=== PATIENT | male | born 1955 | race Caucasian/White ===

== ENCOUNTER 2024-12-14 00:27 | Day surgery (SDC) | payer MEDICARE ==
[~2024-12-14 00:27] MED LIST: ATOR10 PO; ATOR40TA PO; CLOP75 PO; ERTAPENEM1 G6 IV; FLUC200 PO; GLIP10ER PO; HYDMOR2 PO; LEVFLO500; LISINOPRIL-HCT1 EACH PO; METF500 PO; METH10 PO; METH40; METO50ER PO; OXYACE5T PO; OXYC5; OXYCODONE; TAMS.4ER PO; TESTOSTERONE INJ; VISBIOME 112.51 EACH PO
== END 2024-12-14 16:55 | disposition home or self-care (01) ==
LOC: ATC 00:27
DX: Z45.2 Encounter for adjustment and management of vascular access device (principal); I10 Essential (primary) hypertension; E78.00 Pure hypercholesterolemia, unspecified; E11.69 Type 2 diabetes mellitus with other specified complication; M86.171 Other acute osteomyelitis, right ankle and foot; E11.621 Type 2 diabetes mellitus with foot ulcer; L97.509 Non-pressure chronic ulcer of other part of unspecified foot with unspecified severity; I48.91 Unspecified atrial fibrillation; Z79.84 Long term (current) use of oral hypoglycemic drugs
CPT/HCPCS: 99211; C1751

== ENCOUNTER 2025-01-17 18:33 | Emergency (ER) | payer MEDICARE ==
[~2025-01-17] VITALS: Ht 180.3 cm; Wt 118.8 kg
[2025-01-17 19:04] LABS: BASOPHILS ABSOLUTE AUTO 0.03 K/mm3 (0.00-0.23); BASOPHILS PERCENT AUTO 0 % (0-2); EOSINOPHILS ABSOLUTE AUTO 0.02 K/mm3 (0.00-0.68); EOSINOPHILS PERCENT AUTO 0 % (0-6); Hematocrit 33.6 % (37.0-53.0); IMMATURE GRAN ABSOLUTE AUTO 0.03 K/mm3 (0.00-0.10); IMMATURE GRAN PERCENT AUTO 0 % (0-1); LYMPHOCYTES ABSOLUTE AUTO 0.83 K/mm3 (0.84-5.20); LYMPHOCYTES PERCENT AUTO 10 % (21-46); MONOCYTES ABSOLUTE AUTO 0.31 K/mm3 (0.16-1.47); MONOCYTES PERCENT AUTO 4 % (4-13); Mean Corpuscular HGB 27.2 pg (26.0-34.0); Mean Corpuscular HGB Conc 32.7 g/dL (31.5-36.5); Mean Corpuscular Volume 83 fL (80-100); Mean Platelet Volume 9.8 fL (9.1-12.4); NEUTROPHILS ABSOLUTE AUTO 6.74 K/mm3 (1.96-9.15); NEUTROPHILS PERCENT AUTO 85 % (41-73); Platelet Count 259 K/mm3 (150-400); RDW Coefficient Variation 19.1 % (11.7-14.2); RDW Standard Deviation 57.8 fL (35.1-46.3); Red Blood Cell Count 4.04 M/mm3 (4.30-5.90); White Blood Cell Count 7.96 K/mm3 (4.00-11.30)
[2025-01-17 19:33] LABS: Albumin, Blood 3.3 g/dL (3.4-5.0); Albumin/Globulin Ratio 0.7 (0.8-1.8); Bilirubin, Total 0.6 mg/dL (0.1-1.0); Bun/Creatinine Ratio 27.8 (12.0-20.0); Calcium, Blood 9.4 mg/dL (8.5-10.1); Creatinine, Blood 1.44 mg/dL (0.60-1.20); Globulin, Blood 4.7 g/dL (2.2-4.0)
[2025-01-17 19:47] VITALS: BP 141/91
[2025-01-17 20:37] LABS: Source, Urine Clean Catch
[2025-01-17 20:48] LABS: Appearance, Urine Hazy (Clear); Bilirubin, Urine Neg (Neg); Blood, Urine 5+ (Neg); Color, Urine Brown (P-Yellow); Glucose Qualitative, Urine 4+ (Neg); Ketones, Urine Neg (Neg); Leukocyte Esterase, Urine 2+ (Neg); Nitrite, Urine Neg (Neg); Protein, Urine 3+ (Neg); Urobilinogen, Urine NORM (Normal)
[2025-01-17 20:59] LABS: Bacteria Many /hpf; Squamous Epithelial Cells Few /hpf (Few); Yeast/Fungi Urine Many /hpf
[2025-01-17 21:00] LABS: Hyaline Casts 0-2 /lpf (0-2); Red Blood Cells, Urine 50-100 /hpf (0-2)
[2025-01-17] MEDS ORDERED: CEPH500 PO (21:43)
[2025-01-17] MEDS ORDERED: Cephalexin Monohydrate 500 MG Cap PO ONE (21:45)
== END 2025-01-17 21:58 | disposition home or self-care (01) ==
LOC: ER 18:33
PROVIDERS: Student in an Organized Health Care Education/Training Program
DX: N30.01 Acute cystitis with hematuria (principal); I10 Essential (primary) hypertension; E11.9 Type 2 diabetes mellitus without complications; J45.909 Unspecified asthma, uncomplicated; E66.9 Obesity, unspecified; Z68.36 Body mass index [BMI] 36.0-36.9, adult; Z98.890 Other specified postprocedural states; Z88.5 Allergy status to narcotic agent; Z79.84 Long term (current) use of oral hypoglycemic drugs; Z79.01 Long term (current) use of anticoagulants; Z79.899 Other long term (current) drug therapy
CPT/HCPCS: 80053; 81001; 85025; 87086; 99283; A9270

== ENCOUNTER → 2025-03-08 | Outpatient (CLI) | payer MEDICARE ==
[~2025-03-08] MED LIST changes: +CEPH500 PO
[2025-03-08 13:13] LABS: Creatinine, Urine Random 58.6 mg/dL (27.00-270.00)
[2025-03-08 13:46] LABS: Microalb/Creat Ratio UR, Rand 856.655 mg/g (0.000-30.000)
== END | disposition home or self-care (01) ==
LOC: LAB SHORT 06:00 → LAB 06:00 → LAB FUT 02-26 17:05
PROVIDERS: Student in an Organized Health Care Education/Training Program
DX: E11.8 Type 2 diabetes mellitus with unspecified complications (principal)
CPT/HCPCS: 82043; 82570

== ENCOUNTER 2025-06-07 13:11 | Inpatient (IN) | payer MEDICARE ==
[~2025-06-07] VITALS: Ht 180.3 cm; Wt 107.2 kg
[2025-06-07 14:12] LABS: BASOPHILS ABSOLUTE AUTO 0.04 K/mm3 (0.00-0.23); BASOPHILS PERCENT AUTO 1 % (0-2); EOSINOPHILS ABSOLUTE AUTO 0.02 K/mm3 (0.00-0.68); EOSINOPHILS PERCENT AUTO 0 % (0-6); Hematocrit 38.0 % (37.0-53.0); Hemoglobin 11.9 g/dL (13.5-17.5); IMMATURE GRAN ABSOLUTE AUTO 0.02 K/mm3 (0.00-0.10); IMMATURE GRAN PERCENT AUTO 0 % (0-1); LYMPHOCYTES ABSOLUTE AUTO 1.24 K/mm3 (0.84-5.20); LYMPHOCYTES PERCENT AUTO 17 % (21-46); MONOCYTES ABSOLUTE AUTO 0.39 K/mm3 (0.16-1.47); MONOCYTES PERCENT AUTO 5 % (4-13); Mean Corpuscular HGB Conc 31.3 g/dL (31.5-36.5); Mean Corpuscular Volume 86 fL (80-100); NEUTROPHILS ABSOLUTE AUTO 5.50 K/mm3 (1.96-9.15); NEUTROPHILS PERCENT AUTO 76 % (41-73); NRBC ABSOLUTE 0.00 K/mm3 (0.00-0.02); NRBC Auto 0.0 /100 WBC (0.0-0.2); Platelet Count 209 K/mm3 (150-400); RDW Coefficient Variation 14.6 % (11.7-14.2); RDW Standard Deviation 45.5 fL (35.1-46.3)
[2025-06-07 14:38] LABS: Alanine Aminotransfer (ALT/SGP 12.0 U/L (12-78); Albumin, Blood 2.7 g/dL (3.4-5.0); Albumin/Globulin Ratio 0.6 (0.8-1.8); Anion Gap 5.0 mmol/L (3-11); Aspartate Aminotrans (AST/SGOT 11.0 U/L (12-37); Bilirubin, Total 0.3 mg/dL (0.1-1.0); Blood Urea Nitrogen 36.0 mg/dL (8-24); CO2, Blood 28.0 mmol/L (21-32); Calcium, Blood 8.8 mg/dL (8.5-10.1); Chloride, Blood 102.0 mmol/L (98-108); Creatinine, Blood 1.17 mg/dL (0.60-1.20); Globulin, Blood 4.7 g/dL (2.2-4.0); Glucose, Blood 243.0 mg/dL (70-99); Potassium, Blood 4.4 mmol/L (3.5-5.5); Sodium, Blood 131.0 mmol/L (136-145); Total Protein, Blood 7.4 g/dL (6.4-8.2)
[2025-06-07 15:27] LABS: Influenza A, PCR NEGATIVE (NEGATIVE); Influenza B, PCR NEGATIVE (NEGATIVE); Resp Syncytial Virus, PCR NEGATIVE (NEGATIVE); SARS-Cov-2 (COVID-19) PCR, MMC NEGATIVE (NEGATIVE)
[2025-06-07] MEDS ORDERED: METH40 PO (17:35)
[2025-06-07] MEDS ORDERED: Ondansetron HCl 2 MG / ML 2ML Vial IV PRN (19:10)
[2025-06-07 20:19] LABS: U Amphetamine Screen Not Detected; U Barbituate Screen Not Detected; U Benzodiazapine Screen Not Detected; U Buprenorphine Screen Not Detected; U Cannabinoids Screen Not Detected; U Cocaine Screen Not Detected; U Methadone Screen DETECTED; U Methamphetamine Screen Not Detected; U Opiates Screen Not Detected; U Oxycodone Screen Not Detected; U Phencyclidine Screen Not Detected
[2025-06-07 22:57] VITALS: BP 147/76
[2025-06-08 03:54] VITALS: BP 139/80
[2025-06-08 04:44] LABS: Anion Gap 9.0 mmol/L (3-11); Blood Urea Nitrogen 33.0 mg/dL (8-24); CO2, Blood 30.0 mmol/L (21-32); Calcium, Blood 8.1 mg/dL (8.5-10.1); Chloride, Blood 100.0 mmol/L (98-108); Creatinine, Blood 1.21 mg/dL (0.60-1.20); Glucose, Blood 177.0 mg/dL (70-99); Magnesium, Blood 1.5 mg/dL (1.6-2.4); Potassium, Blood 3.9 mmol/L (3.5-5.5); Sodium, Blood 135.0 mmol/L (136-145); Thyroid Stimulating Hormone 4.07 uIU/mL (0.360-4.800)
--- NOTE | 2025-06-08 05:08 | NUR ---
SHIFT SUMMARY PT ALERT AND ORIENTED X 4. PT IN AFIB RATE CONTROLLED WITH HR IN 70S-80S. PT DENIES CP/PRESSURE. BP STABLE. PT ON RA O2 SATS ABOVE 90%. DENIES SOB EXCEPT WHEN LAYING FLAT. ADEQUATE URINE OUTPUT. PT UP INDEPENDENTLY TO EDGE OF BED. VSS. DENIES PAIN. PT ABLE TO MAKE NEEDS KNOWN. CALL TORRES WITHIN REACH.
[2025-06-08] MEDS ORDERED: Mag Sulfate 1 GM/D5% 100ML 100 ML IV STA (05:16)
--- NOTE | 2025-06-08 07:23 | NUR ---
ASSUMPTION NOTE: THIS RN TO ASSUME CARE OF PATIENT. PATIENT IS AWAKE IN BED WATCHING TV. VITAL SIGNS TAKEN & PATIENT STABLE, DENIED CHEST PAIN/PRESSURE OR FEELING SHORT OF BREATH. PATIENT STATED PAIN IS 5/10 AND THAT IS A TOLERABLE PLACE FOR HIM. HAS CALL LIGHT WITHIN REACH AND BED IN LOWEST POSITION, STATING NOTHING ELSE IS NEEDED AT THIS TIME.
[2025-06-08 07:24] VITALS: BP 130/88
[2025-06-08] MEDS ORDERED: Insulin Human Lispro 100 Units/ML 3ML Syringe SC SCH (07:30)
--- NOTE | 2025-06-08 08:40 | NUR ---
MD CONTACTE: THIS RN CALLED MD REGARDING PATIENT DENYING TO TAKE HIS MORNING METHATDONE AND WANTING TO TAKE HALF OF IT NOW AND THE OTHER HALF WITHIN 4 HOURS. MD WAS ALSO MADE AWARE THAT HE REFUSED HIS ONE UNIT OF INSULIN HE STATED "HE DOES NOT TAKE INSULIN AT HOME AND WON'T BE TAKING ANYTHING NEW SO HE DOESN'T WANT IT". MD GAVE VERBAL ORDER TO CHANGE METHADONE TO HALF NOW AND OTHER HALF IN 4HOURS.
--- NOTE | 2025-06-08 09:34 | NUR ---
MD ROUNDED: MD ROUNDED AND SPOKE WITH PATIENT REGARDING PLAN FOR TODAY WITH GETTING THE ECHO DONE TODAY. THIS RN AND PATIENT WENT OVER CONGESTIVE HEART FAILURE AND WHAT THAT IS AND SIGNS AND SYMTPOMS TO LOOK OUT FOR.
[2025-06-08 11:01] VITALS: BP 119/82
--- NOTE | 2025-06-08 16:31 | NUR ---
MD CONTACTED: THIS RN CALLED MD REGARDING EDUCATING PATIENT ONCE AGAIN REGARDING INSULIN PATIENTS LAST BLOOD SUGAR WAS 373 AND PER EMAR MD NEEDED TO BE NOTIFIED. MD GAVE VERBAL ORDER TO GIVE AN ADDITIONAL 2 UNITS SO 7 TOTAL TO BE GIVEN.
[2025-06-08] MEDS ORDERED: Insulin Human Lispro 100 Units/ML 3ML Syringe SC ONE (16:35)
[2025-06-08 17:02] VITALS: BP 137/78
--- NOTE | 2025-06-08 17:04 | NUR ---
SHIFT SUMMARY: PATIENT IS ALERT AND ORIETNED X4 & COOFPERATIVE WITH HIS CARE, ANXIOUS AT TIMES. SATTING >92% ON ROOM DENIED ANY FEELING OF SHORTNESS OF BREATH. PATIENT DID STATED HE CHOKED ON SOME FOOD EARLIER, THIS RN CAME TO BEDSIDE DURING AND O2 SATURATION WAS 100%, SUCTION WAS IN THE ROOM AND PATIENT USED THAT AND CLEARED HIS THROAT. O2 WAS PLACED FOR COMFORT AND PATIENT CONTINUED TO SAT >100%. PATIENT DID NOT WANT TO TAKE INSULIN THROUGHOUT SHIFT UNTIL 1600 DOSE AND THIS RN EDUCATED HIM ONCE AGAIN AND PATIENT WAS AGREEBALE. PATIENT AWAITING ECHO RESULTS. PLAN WILL BE FOR MD TO GET ECHO RESULTS AND PENDING DISCHARE TOMORROW REGARDING THOSE RESULTS. PATIENT WORKED WITH PHYSICAL THERAPY TODAY AND WALKED AROUND THE UNIT WITH THE WALKER. PATIENT WAS ABLE TO SIT UP IN THE CHAIR FOR MEALS TODAY. PATIENT SITTING IN BED, AWAITING DINNER, CALL LIGHT WITHIN REACH AND STATING "ANXIOUS AFTER BEING GIVEN INSULIN FOR THE FIRST TIME". THIS RN STAYED AT BEDSIDE AFTER GIVING INSULIN AND AWAITING DINNER TRAY TO BE BROUGHT IN BY AID. PATIENT HAS CALL LIGHT WITHIN REACH & BED IN LOWEST AND LOCKED POSITION.
[2025-06-08 21:00] VITALS: BP 111/68
[2025-06-08 23:45] VITALS: BP 120/70
--- NOTE | 2025-06-09 00:52 | NUR ---
MD NOTIFICATION REVIEWED PT EKG, TROPONIN LEVELS. MD TO DC LAST TROPONIN LEVEL. PT HEART RATE NOW IN 120'S. CALL MD IF HEART RATE SUSTAINS ABOVE 135.
[2025-06-09 04:22] LABS: BASOPHILS ABSOLUTE AUTO 0.04 K/mm3 (0.00-0.23); BASOPHILS PERCENT AUTO 1 % (0-2); EOSINOPHILS ABSOLUTE AUTO 0.08 K/mm3 (0.00-0.68); EOSINOPHILS PERCENT AUTO 1 % (0-6); Hematocrit 33.5 % (37.0-53.0); Hemoglobin 10.8 g/dL (13.5-17.5); IMMATURE GRAN ABSOLUTE AUTO 0.01 K/mm3 (0.00-0.10); IMMATURE GRAN PERCENT AUTO 0 % (0-1); LYMPHOCYTES ABSOLUTE AUTO 1.21 K/mm3 (0.84-5.20); LYMPHOCYTES PERCENT AUTO 20 % (21-46); MONOCYTES ABSOLUTE AUTO 0.44 K/mm3 (0.16-1.47); MONOCYTES PERCENT AUTO 7 % (4-13); Mean Corpuscular HGB Conc 32.2 g/dL (31.5-36.5); Mean Corpuscular Volume 85 fL (80-100); NEUTROPHILS ABSOLUTE AUTO 4.39 K/mm3 (1.96-9.15); NEUTROPHILS PERCENT AUTO 71 % (41-73); NRBC ABSOLUTE 0.00 K/mm3 (0.00-0.02); NRBC Auto 0.0 /100 WBC (0.0-0.2); Platelet Count 207 K/mm3 (150-400); RDW Coefficient Variation 14.7 % (11.7-14.2); RDW Standard Deviation 45.1 fL (35.1-46.3)
[2025-06-09 04:25] VITALS: BP 115/74
[2025-06-09 04:56] LABS: Alanine Aminotransfer (ALT/SGP 13.0 U/L (12-78); Albumin, Blood 2.2 g/dL (3.4-5.0); Albumin/Globulin Ratio 0.5 (0.8-1.8); Anion Gap 9.0 mmol/L (3-11); Aspartate Aminotrans (AST/SGOT 15.0 U/L (12-37); Bilirubin, Total 0.4 mg/dL (0.1-1.0); Blood Urea Nitrogen 42.0 mg/dL (8-24); CO2, Blood 29.0 mmol/L (21-32); Calcium, Blood 7.9 mg/dL (8.5-10.1); Chloride, Blood 100.0 mmol/L (98-108); Creatinine, Blood 1.65 mg/dL (0.60-1.20); Globulin, Blood 4.4 g/dL (2.2-4.0); Glucose, Blood 276.0 mg/dL (70-99); Magnesium, Blood 1.9 mg/dL (1.6-2.4); Potassium, Blood 4.3 mmol/L (3.5-5.5); Sodium, Blood 134.0 mmol/L (136-145); Total Protein, Blood 6.6 g/dL (6.4-8.2)
--- NOTE | 2025-06-09 06:39 | NUR ---
RN END OF SHIFT SUMMARY Pt denied pain this shift, vss. Pt maintained o2 sats on room air. threat monitoring analyst displayed sinus arrhythmia. Education continues with new chf diagnosis and importance of monitoring daily weight and orthopnea worsening or increased swelling to extremities. Plan for possible dc after the Dr of SHELDON updated.
--- NOTE | 2025-06-09 07:45 | NUR ---
ASSUMPTION NOTE: THIS RN TO ASSUME CARE OF PATIENT. PATIENT SITTING UP IN CHAIR, DENYING ANY PAIN OR SHORTNESS OF BREATH. VITAL SIGNS STABLE. PATIENT STATED "HE DIDN'T GET TOO MUCH SLEEP LAST NIGHT". PATIENT HAS CALL LIGHT WITHIN REACH, AWAITING BREAKFAST AND STATING NOTHING ELSE IS NEEDED AT THIS TIME.
[2025-06-09 07:46] VITALS: BP 133/83
[2025-06-09] MEDS ORDERED: NS 500 ML IV SCH (09:45)
[2025-06-09 11:54] VITALS: BP 105/73
[2025-06-09] MEDS ORDERED: Miconazole Nitrate 2% 85 GM PWD TOP PRN (14:25)
[2025-06-09 16:21] LABS: Anion Gap 5.0 mmol/L (3-11); Blood Urea Nitrogen 43.0 mg/dL (8-24); CO2, Blood 34.0 mmol/L (21-32); Calcium, Blood 7.9 mg/dL (8.5-10.1); Chloride, Blood 98.0 mmol/L (98-108); Creatinine, Blood 1.49 mg/dL (0.60-1.20); Glucose, Blood 278.0 mg/dL (70-99); Potassium, Blood 4.1 mmol/L (3.5-5.5); Sodium, Blood 133.0 mmol/L (136-145)
[2025-06-09 16:29] VITALS: BP 115/74
--- NOTE | 2025-06-09 17:07 | NUR ---
SHIFT SUMMARY: PATIENT IS ALERT AND ORIENTED X4 & COOPERATIVE WITH HIS CARE, IS ABLE TO MAKE NEEDS KNOWN & USES CALL LIGHT APPRORIATELY. PATIENT SATTING >92% ON ROOM AIR, ON TELE SHOWING SINUS RYTHM WITH RATE IN 90'S. PATIENT WAS MEDICATED PER EMAR FOR CHRONIC PAIN. PATIENT WAS MORE AGREEABLE TO GETTING INSULIN TODAY FOR BLOOD SUGAR CHECKS AND WAS EDUCATED ON BOTH INSULIN AND WHAT HEART FAILURE IS. FLUIDS WERE GIVEN FOR GABY, SEE RESULTS OF LAB IN CHART. PATIENT WAS GIVEN A BED BATH TODAY AND WAS UP IN THE CHAIR FOR MEALS THROUGHOUT THE SHIFT. PATIENT EATING DINNER, HAS CALL LIGHT WITHIN REACH AND STATING NOTHIGN ELSE IS NEEDED AT THIS TIME.
[2025-06-09 20:12] VITALS: BP 122/76
[2025-06-09 23:25] VITALS: BP 120/86
[2025-06-10 03:31] VITALS: BP 125/88
[2025-06-10 04:32] LABS: BASOPHILS ABSOLUTE AUTO 0.04 K/mm3 (0.00-0.23); BASOPHILS PERCENT AUTO 1 % (0-2); EOSINOPHILS ABSOLUTE AUTO 0.07 K/mm3 (0.00-0.68); EOSINOPHILS PERCENT AUTO 1 % (0-6); Hematocrit 36.4 % (37.0-53.0); Hemoglobin 11.5 g/dL (13.5-17.5); IMMATURE GRAN ABSOLUTE AUTO 0.02 K/mm3 (0.00-0.10); IMMATURE GRAN PERCENT AUTO 0 % (0-1); LYMPHOCYTES ABSOLUTE AUTO 1.46 K/mm3 (0.84-5.20); LYMPHOCYTES PERCENT AUTO 24 % (21-46); MONOCYTES ABSOLUTE AUTO 0.54 K/mm3 (0.16-1.47); MONOCYTES PERCENT AUTO 9 % (4-13); Mean Corpuscular HGB Conc 31.6 g/dL (31.5-36.5); Mean Corpuscular Volume 87 fL (80-100); NEUTROPHILS ABSOLUTE AUTO 3.96 K/mm3 (1.96-9.15); NEUTROPHILS PERCENT AUTO 65 % (41-73); NRBC ABSOLUTE 0.00 K/mm3 (0.00-0.02); NRBC Auto 0.0 /100 WBC (0.0-0.2); Platelet Count 200 K/mm3 (150-400); RDW Coefficient Variation 14.8 % (11.7-14.2); RDW Standard Deviation 46.9 fL (35.1-46.3)
[2025-06-10 04:58] LABS: Alanine Aminotransfer (ALT/SGP 13.0 U/L (12-78); Albumin, Blood 2.5 g/dL (3.4-5.0); Albumin/Globulin Ratio 0.6 (0.8-1.8); Anion Gap 8.0 mmol/L (3-11); Aspartate Aminotrans (AST/SGOT 10.0 U/L (12-37); Bilirubin, Total 0.2 mg/dL (0.1-1.0); Blood Urea Nitrogen 43.0 mg/dL (8-24); CO2, Blood 33.0 mmol/L (21-32); Calcium, Blood 7.9 mg/dL (8.5-10.1); Chloride, Blood 99.0 mmol/L (98-108); Creatinine, Blood 1.61 mg/dL (0.60-1.20); Globulin, Blood 4.5 g/dL (2.2-4.0); Glucose, Blood 279.0 mg/dL (70-99); Potassium, Blood 4.5 mmol/L (3.5-5.5); Sodium, Blood 135.0 mmol/L (136-145); Total Protein, Blood 7.0 g/dL (6.4-8.2)
--- NOTE | 2025-06-10 05:49 | NUR ---
NOC SHIFT SUMMARY PT IS A+P X4 ABLE TO MAKE NEEDS KNOWN, HE IS COOPERATIVE WITH CARE AND HOPEFUL TO DISCHARGE TODAY. NO ACUTE EVENTS TO REPORT FROM OVERNIGHT. PATIENT DENIES CHEST PAIN OR PRESSURE. IN NO APPARENT DISTRESS, BREATHING EVEN AND UNLABORED. VSS. RA SATTING 95% AND ABOVE ON SPOT CHECKS, AFEBRILE. 1 PERSON ASSIT TO STAND FOR WEIGHT THIS AM. CURRENTLY TRYING TO REST IN RECLINER. CALL LIGHT IN REACH, CARE CONTINUES, WILL REPORT TO ONCOMING RN.
--- NOTE | 2025-06-10 07:32 | NUR ---
ASSUMPTION NOTE: THIS RN TO ASSUME CARE OF PATIENT, PATIENT IS SITTING UP IN RECLINER AWAITNG BREAKFAST. PATIENT NOTIFIED PLAN IS TO GO HOME TODAY UNLESS MD COMES BY AND STATES OTHERWISE BUT PATIENT EXPRESSED "HE WOULD PREFER TO STAY ANOTHER NIGHT HE DOESN'T HAVE ANYTHING SET UP AT HOME". THIS RN NOTIFIED SHEAR GRINDER OPERATOR HELPER WILL BE ABLE TO HELP WITH THAT AND THE PLAN WAS TO GET HOME HEALTH AND THEY WOULD BE ABLE TO GET THINGS SET UP WELL. THIS RN TO GET IN CONTACT WITH BOTH TO GET HIM THE RESOURCES HE NEEDS. PATIENT SITTING IN CHAIR, HAS CALL LIGHT WITHIN REACH & STATING NOTHIGN ELSE IS NEEDED AT THIS TIME.
[2025-06-10 07:47] VITALS: BP 130/91
--- NOTE | 2025-06-10 10:54 | NUR ---
MD ROUNDED: MD ROUNDED AND SPOKE WITH PATIENT. PATIENT IS AGREEABLE TO CHANGING MEDICATIONS TO BETTER CONTROL HIS BLOOD SUGARS AND WILL BE STAYING ANOTHER NIGHT. PATIENT AWARE WE WILL START THOSE NEW MEDCIATIONS HERE AND IS NOW MEDICAL WITHOUT TELE STATUS.
[2025-06-10 11:23] VITALS: BP 117/85
--- NOTE | 2025-06-10 13:38 | NUR ---
PATIENT EDUCATED: THIS RN WENT OVER WITH PATIENT AND WAS GIVEN A HAND OUT ON NEW MEDICATIONS THAT WERE STARTED HERE TO CONTROL HIS BLOOD SUGARS BETTER.
[2025-06-10 15:57] VITALS: BP 117/80
--- NOTE | 2025-06-10 17:15 | NUR ---
SHIFT SUMMARY: PATIENT IS ALERT AND ORIETNED X4 & COOPERATIVE WITH HIS CARE, IS ABLE TO MAKE NEEDS KNOWN & USES CALL LIGHT APPROPRIATELY. SATTING >92% ON ROOM AIR, ON TELE SHOWING SINUS ARRYTHMIA WITH PVC'S. PATIENT WAS AGREEABLE TO CHANGE MEDICATIONS TO BETTER MANAGE BLOOD SUGARS THAT WERE STARTED TODAY, IS STAYING ANOTHER NIGHT AND WILL BE LOOKING AT DISCHARGE TOMORROW. IS MEDICAL WITHOUT TELE STATUS AND AWARE HE COULD MOVE UPSTAIRS AT ANY POINT. PATIENT WALKED TO THE [facility] TODAY WITH FRONT WHEELED WALKER AND GAIT BELT. PATIENT SAT UP IN CHAIR FOR MEALS THROUGHOUT THE SHIFT. PAIN WAS MANAGEABLE THROUGHOUT THE SHIFT WITH MEDICATIONS ON EMAR. PATIENT HAS CALL LIGHT WITHIN REACH, SITTING IN THE CHAIR AND STATING NOTHING ELSE IS NEEDED AT THIS TIME.
[2025-06-10 19:48] VITALS: BP 121/72
[2025-06-10 23:55] VITALS: BP 105/64
[2025-06-11 03:40] VITALS: BP 110/79
[2025-06-11 04:07] LABS: BASOPHILS ABSOLUTE AUTO 0.04 K/mm3 (0.00-0.23); BASOPHILS PERCENT AUTO 1 % (0-2); EOSINOPHILS ABSOLUTE AUTO 0.10 K/mm3 (0.00-0.68); EOSINOPHILS PERCENT AUTO 2 % (0-6); Hematocrit 35.1 % (37.0-53.0); Hemoglobin 11.3 g/dL (13.5-17.5); IMMATURE GRAN ABSOLUTE AUTO 0.01 K/mm3 (0.00-0.10); IMMATURE GRAN PERCENT AUTO 0 % (0-1); LYMPHOCYTES ABSOLUTE AUTO 1.37 K/mm3 (0.84-5.20); LYMPHOCYTES PERCENT AUTO 22 % (21-46); MONOCYTES ABSOLUTE AUTO 0.47 K/mm3 (0.16-1.47); MONOCYTES PERCENT AUTO 8 % (4-13); Mean Corpuscular HGB Conc 32.2 g/dL (31.5-36.5); Mean Corpuscular Volume 86 fL (80-100); NEUTROPHILS ABSOLUTE AUTO 4.14 K/mm3 (1.96-9.15); NEUTROPHILS PERCENT AUTO 68 % (41-73); NRBC ABSOLUTE 0.00 K/mm3 (0.00-0.02); NRBC Auto 0.0 /100 WBC (0.0-0.2); Platelet Count 208 K/mm3 (150-400); RDW Coefficient Variation 14.7 % (11.7-14.2); RDW Standard Deviation 46.2 fL (35.1-46.3)
[2025-06-11 04:29] LABS: Alanine Aminotransfer (ALT/SGP 11.0 U/L (12-78); Albumin, Blood 2.3 g/dL (3.4-5.0); Albumin/Globulin Ratio 0.5 (0.8-1.8); Anion Gap 6.0 mmol/L (3-11); Aspartate Aminotrans (AST/SGOT 10.0 U/L (12-37); Bilirubin, Total 0.2 mg/dL (0.1-1.0); Blood Urea Nitrogen 41.0 mg/dL (8-24); CO2, Blood 33.0 mmol/L (21-32); Calcium, Blood 7.8 mg/dL (8.5-10.1); Chloride, Blood 101.0 mmol/L (98-108); Creatinine, Blood 1.63 mg/dL (0.60-1.20); Globulin, Blood 4.3 g/dL (2.2-4.0); Glucose, Blood 226.0 mg/dL (70-99); Potassium, Blood 4.9 mmol/L (3.5-5.5); Sodium, Blood 135.0 mmol/L (136-145); Total Protein, Blood 6.6 g/dL (6.4-8.2)
--- NOTE | 2025-06-11 05:01 | NUR ---
REPORT GIVEN TO YUNIER CHACON, TRANSFER TO MEDICAL FLOOR ROOM 332
[2025-06-11 05:25] VITALS: BP 116/86
--- NOTE | 2025-06-11 05:49 | NUR ---
END OF SHIFT REPORT PT ARRIVED TO UNIT FROM PCU IN WHEELCHAIR AT 0530. RECLINER CHAIR SET UP FOR PT COMFORT FOR SLEEP ORTHOPNEA. VSS, ROOM ORIENTATION COMPLETED AND PLAN OF CARE DISCUSSED. PT LIKELY DC HOME TODAY AFTER CARE MANAGEMENT CONTINUES GETTING PT READY FOR DC WITH CHF CARE. PT DENIES PAIN AND IS WATCHING TV. PT ON ROOM AIR, LEG SWELLING DECREASED FROM WHEN RN HAD PT SEVERAL DAYS AGO.
[2025-06-11 07:14] VITALS: BP 114/69
[2025-06-11] MEDS ORDERED: ELIQUIS5 M2 PO (11:35)
[2025-06-11] MEDS ORDERED: FURO20 PO (11:36)
[2025-06-11] MEDS ORDERED: JARDIANCE10 MG PO (11:36)
[2025-06-11] MEDS ORDERED: MAGNESIUM OXID500 MG PO (11:36)
[2025-06-11] MEDS ORDERED: SPIR25 PO (11:37)
[2025-06-11] MEDS ORDERED: ENTRESTO 24 MG1 EACH PO (11:37)
[2025-06-11] MEDS ORDERED: TAMS.4ER PO (11:38)
--- NOTE | 2025-06-11 12:19 | NUR ---
DISCHARGE NOTE: A&OX4 PRIOR TO D/C. PAPERWORK AND INSTRUCTIONS COMMUNICATED TO PATIENT. PT STATED THAT HE MAY NOT GET HIS PRESCRIPTIONS TODAY. EDUCATED ON IMPORTANCE OF PICKING UP MEDICATIONS TO HAVE THEM FOR TOMORROW. EDUCATION ALSO PROVIDED TO PATIENT THAT IF HE DOES NOT OFFICE SERVICES ASSOCIATE HIS PRESCRIPTIONS TODAY, HE WILL MISS HIS ELIQUIS DOSE. PT ESCORTED OUT VIA W/C BY STAFF. IV REMOVED PRIOR TO LEAVING. ALL BELONGINGS SENT WITH PT.
== END 2025-06-11 12:27 | disposition home health service (06) | DRG 291 ==
LOC: ER 13:11 → PCU 13:12 → ERHOLD 13:12 → PCU 22:07 → MEDS 06-11 05:30
PROVIDERS: Family Medicine; Nurse Practitioner Acute Care; Physician Assistant; ADMIT Student in an Organized Health Care Education/Training Program
DX: I13.0 Hypertensive heart and chronic kidney disease with heart failure and stage 1 through stage 4 chronic kidney disease, or unspecified chronic kidney disease (principal); I50.23 Acute on chronic systolic (congestive) heart failure; I48.20 Chronic atrial fibrillation, unspecified; N17.9 Acute kidney failure, unspecified; M54.50 Low back pain, unspecified; I48.91 Unspecified atrial fibrillation; E78.5 Hyperlipidemia, unspecified; E11.69 Type 2 diabetes mellitus with other specified complication; N40.0 Benign prostatic hyperplasia without lower urinary tract symptoms; E11.51 Type 2 diabetes mellitus with diabetic peripheral angiopathy without gangrene; M81.0 Age-related osteoporosis without current pathological fracture; E83.42 Hypomagnesemia; E11.22 Type 2 diabetes mellitus with diabetic chronic kidney disease; N18.2 Chronic kidney disease, stage 2 (mild); G47.33 Obstructive sleep apnea (adult) (pediatric); J44.89 Other specified chronic obstructive pulmonary disease; Z98.890 Other specified postprocedural states; Z87.891 Personal history of nicotine dependence; Z79.02 Long term (current) use of antithrombotics/antiplatelets; Z79.84 Long term (current) use of oral hypoglycemic drugs; Z79.899 Other long term (current) drug therapy; Z88.8 Allergy status to other drugs, medicaments and biological substances
CPT/HCPCS: 36415; 71046; 80048; 80053; 82947; 83036; 83735; 83880; 84443; 84484; 85025; 87637; 93005; 93010; 96365; 96375; 96376; 97116; 97162; 97530; 99285-25; A9270; C8929; G0378; J1938; J3475; J7040; Q9957

== ENCOUNTER 2025-06-15 14:09 | Emergency (ER) | payer MEDICARE ==
[~2025-06-15] VITALS: Ht 180.3 cm; Wt 245.0 kg
[~2025-06-15 14:09] MED LIST changes: +ELIQUIS5 M2 PO; +ENTRESTO 24 MG1 EACH PO; +FURO20 PO; +JARDIANCE10 MG PO; +MAGNESIUM OXID500 MG PO; +METH40 PO; +SPIR25 PO
[2025-06-15 16:49] LABS: BASOPHILS ABSOLUTE AUTO 0.02 K/mm3 (0.00-0.23); BASOPHILS PERCENT AUTO 0 % (0-2); EOSINOPHILS ABSOLUTE AUTO 0.04 K/mm3 (0.00-0.68); EOSINOPHILS PERCENT AUTO 1 % (0-6); Hematocrit 35.2 % (37.0-53.0); Hemoglobin 11.1 g/dL (13.5-17.5); IMMATURE GRAN ABSOLUTE AUTO 0.02 K/mm3 (0.00-0.10); IMMATURE GRAN PERCENT AUTO 0 % (0-1); LYMPHOCYTES ABSOLUTE AUTO 1.12 K/mm3 (0.84-5.20); LYMPHOCYTES PERCENT AUTO 22 % (21-46); MONOCYTES ABSOLUTE AUTO 0.32 K/mm3 (0.16-1.47); MONOCYTES PERCENT AUTO 6 % (4-13); Mean Corpuscular HGB Conc 31.5 g/dL (31.5-36.5); Mean Corpuscular Volume 85 fL (80-100); NEUTROPHILS ABSOLUTE AUTO 3.52 K/mm3 (1.96-9.15); NEUTROPHILS PERCENT AUTO 70 % (41-73); NRBC ABSOLUTE 0.00 K/mm3 (0.00-0.02); NRBC Auto 0.0 /100 WBC (0.0-0.2); Platelet Count 210 K/mm3 (150-400); RDW Coefficient Variation 15.1 % (11.7-14.2); RDW Standard Deviation 46.4 fL (35.1-46.3)
[2025-06-15 17:07] LABS: Anion Gap 6.0 mmol/L (3-11); Blood Urea Nitrogen 45.0 mg/dL (8-24); CO2, Blood 30.0 mmol/L (21-32); Calcium, Blood 8.8 mg/dL (8.5-10.1); Chloride, Blood 104.0 mmol/L (98-108); Creatinine, Blood 1.41 mg/dL (0.60-1.20); Glucose, Blood 213.0 mg/dL (70-99); Magnesium, Blood 2.2 mg/dL (1.6-2.4); Potassium, Blood 5.2 mmol/L (3.5-5.5); Sodium, Blood 135.0 mmol/L (136-145)
[2025-06-15 17:15] VITALS: BP 122/81
== END 2025-06-15 17:55 | disposition home or self-care (01) ==
LOC: ER 14:09
PROVIDERS: Emergency Medicine
DX: R79.89 Other specified abnormal findings of blood chemistry (principal); J45.909 Unspecified asthma, uncomplicated; E11.21 Type 2 diabetes mellitus with diabetic nephropathy; I51.89 Other ill-defined heart diseases; Z79.84 Long term (current) use of oral hypoglycemic drugs; Z79.899 Other long term (current) drug therapy; Z88.8 Allergy status to other drugs, medicaments and biological substances
CPT/HCPCS: 36415; 80048; 80053; 83735; 83880; 83970; 85025; 93005; 93010; 99284-25

== ENCOUNTER 2025-07-08 22:07 | Observation (INO) | payer MEDICARE ==
[~2025-07-08] VITALS: Ht 180.3 cm; Wt 112.5 kg
[2025-07-08 22:54] LABS: BASOPHILS ABSOLUTE AUTO 0.03 K/mm3 (0.00-0.23); BASOPHILS PERCENT AUTO 1 % (0-2); EOSINOPHILS ABSOLUTE AUTO 0.06 K/mm3 (0.00-0.68); EOSINOPHILS PERCENT AUTO 1 % (0-6); Hematocrit 41.6 % (37.0-53.0); Hemoglobin 13.3 g/dL (13.5-17.5); IMMATURE GRAN ABSOLUTE AUTO 0.04 K/mm3 (0.00-0.10); IMMATURE GRAN PERCENT AUTO 1 % (0-1); LYMPHOCYTES ABSOLUTE AUTO 1.16 K/mm3 (0.84-5.20); LYMPHOCYTES PERCENT AUTO 19 % (21-46); MONOCYTES ABSOLUTE AUTO 0.36 K/mm3 (0.16-1.47); MONOCYTES PERCENT AUTO 6 % (4-13); Mean Corpuscular HGB Conc 32.0 g/dL (31.5-36.5); Mean Corpuscular Volume 85 fL (80-100); NEUTROPHILS ABSOLUTE AUTO 4.36 K/mm3 (1.96-9.15); NEUTROPHILS PERCENT AUTO 73 % (41-73); NRBC ABSOLUTE 0.00 K/mm3 (0.00-0.02); NRBC Auto 0.0 /100 WBC (0.0-0.2); Platelet Count 249 K/mm3 (150-400); RDW Coefficient Variation 15.5 % (11.7-14.2); RDW Standard Deviation 47.1 fL (35.1-46.3)
[2025-07-08 23:16] LABS: Alanine Aminotransfer (ALT/SGP 17.0 U/L (12-78); Albumin, Blood 3.0 g/dL (3.4-5.0); Albumin/Globulin Ratio 0.6 (0.8-1.8); Anion Gap 11.0 mmol/L (3-11); Aspartate Aminotrans (AST/SGOT 11.0 U/L (12-37); Bilirubin, Total 0.2 mg/dL (0.1-1.0); Blood Urea Nitrogen 66.0 mg/dL (8-24); CO2, Blood 26.0 mmol/L (21-32); Calcium, Blood 8.7 mg/dL (8.5-10.1); Chloride, Blood 99.0 mmol/L (98-108); Creatinine, Blood 1.56 mg/dL (0.60-1.20); Globulin, Blood 5.1 g/dL (2.2-4.0); Glucose, Blood 365.0 mg/dL (70-99); Potassium, Blood 6.0 mmol/L (3.5-5.5); Sodium, Blood 130.0 mmol/L (136-145); Total Protein, Blood 8.1 g/dL (6.4-8.2)
[2025-07-08] MEDS ORDERED: Calcium Gluconate 10% 2,000 MG in NS 50 ML IV ONE (23:20)
[2025-07-09] MEDS ORDERED: Insulin Regular 100 Unit/ML 1ML Dose IV ONE ×2 (01:20→02:30)
[2025-07-09] MEDS ORDERED: Albuterol 2.5 MG/3 ML VIAL INH SCH (01:20)
[2025-07-09] MEDS ORDERED: Sodium Bicarb 8.4% 1 MEQ/ML 50 ML Vial IV ONE (01:20)
[2025-07-09] MEDS ORDERED: NS 500 ML IV ONE (03:00)
[2025-07-09 04:08] VITALS: BP 127/78
[2025-07-09 04:43] LABS: BASOPHILS ABSOLUTE AUTO 0.03 K/mm3 (0.00-0.23); BASOPHILS PERCENT AUTO 0 % (0-2); EOSINOPHILS ABSOLUTE AUTO 0.02 K/mm3 (0.00-0.68); EOSINOPHILS PERCENT AUTO 0 % (0-6); Hematocrit 38.4 % (37.0-53.0); Hemoglobin 12.1 g/dL (13.5-17.5); IMMATURE GRAN ABSOLUTE AUTO 0.04 K/mm3 (0.00-0.10); IMMATURE GRAN PERCENT AUTO 1 % (0-1); LYMPHOCYTES ABSOLUTE AUTO 1.23 K/mm3 (0.84-5.20); LYMPHOCYTES PERCENT AUTO 17 % (21-46); MONOCYTES ABSOLUTE AUTO 0.53 K/mm3 (0.16-1.47); MONOCYTES PERCENT AUTO 8 % (4-13); Mean Corpuscular HGB Conc 31.5 g/dL (31.5-36.5); Mean Corpuscular Volume 86 fL (80-100); NEUTROPHILS ABSOLUTE AUTO 5.23 K/mm3 (1.96-9.15); NEUTROPHILS PERCENT AUTO 74 % (41-73); NRBC ABSOLUTE 0.00 K/mm3 (0.00-0.02); NRBC Auto 0.0 /100 WBC (0.0-0.2); Platelet Count 237 K/mm3 (150-400); RDW Coefficient Variation 15.2 % (11.7-14.2); RDW Standard Deviation 47.0 fL (35.1-46.3)
[2025-07-09] MEDS ORDERED: Insulin Regular 100 UNIT/ML 10ML Vial IV ONE (04:45)
[2025-07-09 05:19] LABS: Magnesium, Blood 2.0 mg/dL (1.6-2.4)
[2025-07-09 05:20] LABS: Alanine Aminotransfer (ALT/SGP 13.0 U/L (12-78); Albumin, Blood 2.8 g/dL (3.4-5.0); Albumin/Globulin Ratio 0.6 (0.8-1.8); Anion Gap 13.0 mmol/L (3-11); Aspartate Aminotrans (AST/SGOT 8.0 U/L (12-37); Bilirubin, Total 0.2 mg/dL (0.1-1.0); Blood Urea Nitrogen 58.0 mg/dL (8-24); CO2, Blood 25.0 mmol/L (21-32); Calcium, Blood 8.9 mg/dL (8.5-10.1); Chloride, Blood 99.0 mmol/L (98-108); Creatinine, Blood 1.52 mg/dL (0.60-1.20); Globulin, Blood 4.7 g/dL (2.2-4.0); Glucose, Blood 328.0 mg/dL (70-99); Potassium, Blood 4.9 mmol/L (3.5-5.5); Sodium, Blood 132.0 mmol/L (136-145); Total Protein, Blood 7.5 g/dL (6.4-8.2)
[2025-07-09] MEDS ORDERED: Insulin Human Lispro 100 Units/ML 3ML Syringe SC SCH (07:30)
[2025-07-09 09:08] VITALS: BP 124/82
[2025-07-09 11:34] VITALS: BP 121/68
[2025-07-09 15:28] LABS: Anion Gap 11.0 mmol/L (3-11); Blood Urea Nitrogen 63.0 mg/dL (8-24); CO2, Blood 28.0 mmol/L (21-32); Calcium, Blood 9.1 mg/dL (8.5-10.1); Chloride, Blood 99.0 mmol/L (98-108); Creatinine, Blood 1.77 mg/dL (0.60-1.20); Glucose, Blood 257.0 mg/dL (70-99); Potassium, Blood 5.4 mmol/L (3.5-5.5); Sodium, Blood 133.0 mmol/L (136-145)
[2025-07-09 15:36] VITALS: BP 116/77
[2025-07-09] MEDS ORDERED: MetFORMIN HCl 500 mg PO SCH (17:30)
[2025-07-09] MEDS ORDERED: Naloxone HCl 0.4MG / ML 1ML Vial IV PRN (18:15)
--- NOTE | 2025-07-09 18:53 | NUR ---
SHIFT SUMMARY: A/O X4, ANXIOUS, PLEASANT AND COOPERATIVE WITH CARE, ABLE TO COMMUNICATE NEEDS. PT HOPEFUL FOR DISCHARGE TODAY, MD SHARIF STATUS CHANGED TO MEDICAL W/TELE. POTASSIUM INCREASED FROM 4.9 TO 5.4, PT STATES HE IS GOING TO SURVEILLANCE INSPECTOR FOR A STENT AN OUTPATIENT, INDEPENDENT IN W/C AROUND UNIT.
[2025-07-09 20:23] VITALS: BP 102/68
--- NOTE | 2025-07-10 01:20 | NUR ---
REPORT GIVEN TO OSWALDO DUEÑAS ON MEDICAL FLOOR. PT GOING TO ROOM 339.
[2025-07-10 01:37] VITALS: BP 124/83
--- NOTE | 2025-07-10 01:47 | NUR ---
PATIENT TRANSFER FROM PCU TO [place] [id number] VIA W/C. ABLE TO STAND AND TRANFER TO RECLINER. A&O DENIES NEEDS AT THIS TIME. IV FLUSHED IN LFA. VITALS STABLE, TELE SR 79. ON ROOM AIR. CALL LIGHT NEAR.
--- NOTE | 2025-07-10 01:58 | NUR ---
ALL BELONGINGS, MEDICATIONS, PAPERWORK WITH PT AT TIME OF D/C.
[2025-07-10 06:49] LABS: BASOPHILS ABSOLUTE AUTO 0.03 K/mm3 (0.00-0.23); BASOPHILS PERCENT AUTO 1 % (0-2); EOSINOPHILS ABSOLUTE AUTO 0.06 K/mm3 (0.00-0.68); EOSINOPHILS PERCENT AUTO 1 % (0-6); Hematocrit 38.0 % (37.0-53.0); Hemoglobin 12.2 g/dL (13.5-17.5); IMMATURE GRAN ABSOLUTE AUTO 0.01 K/mm3 (0.00-0.10); IMMATURE GRAN PERCENT AUTO 0 % (0-1); LYMPHOCYTES ABSOLUTE AUTO 1.42 K/mm3 (0.84-5.20); LYMPHOCYTES PERCENT AUTO 25 % (21-46); MONOCYTES ABSOLUTE AUTO 0.38 K/mm3 (0.16-1.47); MONOCYTES PERCENT AUTO 7 % (4-13); Mean Corpuscular HGB Conc 32.1 g/dL (31.5-36.5); Mean Corpuscular Volume 85 fL (80-100); NEUTROPHILS ABSOLUTE AUTO 3.74 K/mm3 (1.96-9.15); NEUTROPHILS PERCENT AUTO 66 % (41-73); NRBC ABSOLUTE 0.00 K/mm3 (0.00-0.02); NRBC Auto 0.0 /100 WBC (0.0-0.2); Platelet Count 240 K/mm3 (150-400); RDW Coefficient Variation 15.6 % (11.7-14.2); RDW Standard Deviation 47.7 fL (35.1-46.3)
[2025-07-10 07:04] LABS: Anion Gap 7.0 mmol/L (3-11); Blood Urea Nitrogen 56.0 mg/dL (8-24); CO2, Blood 29.0 mmol/L (21-32); Calcium, Blood 8.8 mg/dL (8.5-10.1); Chloride, Blood 100.0 mmol/L (98-108); Creatinine, Blood 1.67 mg/dL (0.60-1.20); Glucose, Blood 191.0 mg/dL (70-99); Potassium, Blood 5.1 mmol/L (3.5-5.5); Sodium, Blood 131.0 mmol/L (136-145)
[2025-07-10 07:28] VITALS: BP 124/81
--- NOTE | 2025-07-10 07:36 | NUR ---
SHIFT SUMMARY; AFTER TRANFER PATIENT STAYED IN RECLINER. WANTED REGULAR SODA, REMINDED HIM OF DIABETIC DIET HE NEEDS TO STICK TO. TELE SR 76.
[2025-07-10 11:20] VITALS: BP 121/64
--- NOTE | 2025-07-10 13:04 | NUR ---
REVIEWED DISCHARGE INSTRUCTIONS WITH PATIENT. REVIEWED MEDICATION CHANGES, FOLLOW UP APPOINTMENTS AND WHEN TO SEEK MEDICAL ASSISTANCE. PATIENT HAS NO CONCERNS. MEDICATIONS AND POCKET KNIFE RETURNED TO PATIENT HE WAS BEING TAKEN TO VEHICLE.
== END 2025-07-10 13:30 | disposition home or self-care (01) ==
LOC: ER 22:07 → PCU 22:08 → MEDS 07-10 01:30
PROVIDERS: Emergency Medicine; Internal Medicine; Student in an Organized Health Care Education/Training Program; ADMIT Student in an Organized Health Care Education/Training Program
DX: E87.5 Hyperkalemia (principal); E87.1 Hypo-osmolality and hyponatremia; I48.91 Unspecified atrial fibrillation; I13.0 Hypertensive heart and chronic kidney disease with heart failure and stage 1 through stage 4 chronic kidney disease, or unspecified chronic kidney disease; I50.22 Chronic systolic (congestive) heart failure; E11.22 Type 2 diabetes mellitus with diabetic chronic kidney disease; N18.32 Chronic kidney disease, stage 3b; E11.51 Type 2 diabetes mellitus with diabetic peripheral angiopathy without gangrene; M54.50 Low back pain, unspecified; G89.29 Other chronic pain; N40.0 Benign prostatic hyperplasia without lower urinary tract symptoms; G47.33 Obstructive sleep apnea (adult) (pediatric); J44.9 Chronic obstructive pulmonary disease, unspecified; Z79.01 Long term (current) use of anticoagulants; Z79.84 Long term (current) use of oral hypoglycemic drugs; Z79.899 Other long term (current) drug therapy; Z88.8 Allergy status to other drugs, medicaments and biological substances
CPT/HCPCS: 36415; 71046; 80048; 80053; 82533; 82947; 83735; 83880; 84132; 84484; 85025; 93005; 93010; 96361; 96365; 96375; 99285-25; A9270; G0378; J0612; J1815; J7040